=== PATIENT | female | born 2005 | race Caucasian/White ===

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

== ENCOUNTER 2025-01-26 09:17 | Emergency (ER) | payer OTHER ==
[2025-01-26] MEDS ORDERED: Ondansetron PF 4 MG/2 ML Vial ONE (09:49)
[2025-01-26 10:28] LABS: #Basophils Less than 0.03 10x3/uL (0.0-0.2); #Eosinophils Less than 0.03 10x3/uL (0.0-0.7); #Monocytes 0.43 10x3/uL (0.11-0.59); #Neutrophils 12.61 10x3/uL (1.40-6.50); %Basophils 0.1 % (0.0-1.0); %Eosinophils 0.0 % (0.0-10.0); %Lymphocytes 5.0 % (28.0-48.0); %Monocytes 3.1 % (0.0-4.0); %Neutrophils 91.4 % (31.0-61.0); Hematocrit 45.9 % (36.0-47.0); Hemoglobin 15.6 g/dL (12.0-16.0); Mean Corpuscular Hemoglobin 29.7 pg (25.0-35.0); Mean Corpuscular Volume 87.4 fL (78.0-98.0); Platelet Count 276 10x3/uL (130-400); Red Blood Cell (RBC) Count 5.25 mill/uL (4.00-5.20); White Blood Cell (WBC) Count 13.81 10x3/uL (4.8-10.8)
[2025-01-26 10:39] LABS: CAUTI Indications for Culture Pelvic or flank pain; Glucose, Urine (Dipstick) Normal (Negative); Leukocyte 25 Leu/uL (Negative); Protein, Urine (Dipstick) 10 mg/dL (Neg-Trace); RBC/HPF None Seen HPF (0-3); Specific Gravity, Urine 1.033 (1.002-1.036); WBC/HPF 0-3 HPF (0-3)
[2025-01-26 10:42] LABS: Urine Culture Reflex No No
[2025-01-26 10:51] LABS: Bacteria/HPF 1+ HPF (None Seen)
[2025-01-26 10:54] LABS: ALT (SGPT) 19 U/L (Less than 34); AST (SGOT) 37 U/L (11-34); Albumin 4.6 g/dL (3.1-4.5); Alkaline Phosphatase 66 U/L (40-100); Anion Gap 14 mmol/L (10-20); BUN (Urea Nitrogen) 15 mg/dL (8.4-21.0); Bilirubin, Total 1.0 mg/dL (0.3-1.2); Calc. Creatinine Clearance 0 mL/min (70-130); Calcium 9.5 mg/dL (7.8-10.44); Carbon Dioxide 23 mmol/L (22-29); Chloride 105 mmol/L (98-107); Globulin 3.5 g/dL (2.4-3.5); Glucose 98 mg/dL (70-105); Lipase 15 U/L (8-78); Potassium 4.0 mmol/L (3.5-5.1); Sodium 138 mmol/L (136-145)
[2025-01-26 10:59] LABS: BHCG - Serum Negative (NEGATIVE); Pregs Control Background? CLEAR/WHITE (CLR/WHITE); Pregs Control Bar Appear? YES (CONTROL BAR)
== END 2025-01-26 12:23 | disposition home or self-care (01) ==
LOC: ERS 09:17
DX: K52.9 Noninfective gastroenteritis and colitis, unspecified (principal); D72.829 Elevated white blood cell count, unspecified; Z98.61 Coronary angioplasty status
CPT/HCPCS: 36415; 74177; 80053; 81001; 83605; 83690; 84703; 85025; 96361; 96374; J2405